=== PATIENT | female | born 1985 | race Two or more races ===

== ENCOUNTER 2019-06-07 10:58 | Emergency (ER) | payer BC, OTHER ==
[~2019-06-07] VITALS: Ht 154.9 cm; Wt 90.7 kg
[2019-06-07 12:25] VITALS: BP 150/87
== END 2019-06-07 14:36 | disposition home or self-care (01) ==
LOC: ER 10:58
DX: J06.9 Acute upper respiratory infection, unspecified (principal); J30.2 Other seasonal allergic rhinitis

== ENCOUNTER 2019-07-09 10:12 | Emergency (ER) | payer BC ==
[~2019-07-09] VITALS: Ht 154.9 cm; Wt 93.0 kg
[2019-07-09 10:20] VITALS: BP 142/86
== END 2019-07-09 11:12 | disposition home or self-care (01) ==
LOC: ER 10:12
DX: M77.31 Calcaneal spur, right foot (principal); M23.8X1 Other internal derangements of right knee
CPT/HCPCS: 73562; 73630

== ENCOUNTER 2021-12-30 22:37 | Emergency (ER) | payer BC, MEDICAID ==
[~2021-12-30] VITALS: Ht 154.9 cm; Wt 90.0 kg
[2021-12-31 01:49] VITALS: BP 162/97
== END 2021-12-31 01:48 | disposition home or self-care (01) ==
LOC: ER 22:40
DX: S91.202A Unspecified open wound of left great toe with damage to nail, initial encounter (principal); Z88.0 Allergy status to penicillin; X58.XXXA Exposure to other specified factors, initial encounter; Y93.89 Activity, other specified; Y92.89 Other specified places as the place of occurrence of the external cause; Y99.8 Other external cause status
CPT/HCPCS: 11730